=== PATIENT | female | born 1980 | race Caucasian/White ===

== ENCOUNTER 2019-05-05 10:02 | Emergency (ER) | payer SELFPAY ==
[2019-05-05 10:14] VITALS: BP 174/115
--- NOTE | 2019-05-05 10:23 | ED Physician Documentation ---
Skin Rash - HISTORIAN Historian: patient - HPI Stated Complaint: Rash Chief Complaint: Skin Rash Additional Information: Patient is a 38 year old female that c/o a rash that started 3 weeks ago after having rectal sexual intercourse with ex boyfriend. She has not tried anything over the counter. Onset: days ago (3 weeks) Timing: still present Duration: persistent since Location: waldo-rectal Quality: itchy Identified Cause?: Yes (sex) When Did Symptoms Start: 04/14/19 Where: other ([facility]) Context: Medication Exposure: none Context: Food Exposure: none Context: Other Exposure: other (sexual intercourse) - ROS CONST: none CVS/RESP: none EYES/ENT: none GI/: none MS/SKIN/LYMPH: none NEURO/PSYCH: none - PAST HX Past History: other (anxiety, depression, psychosis) Immunizations: UTD Allergies/Adverse Reactions: Allergies Allergy/AdvReac Type Severity Reaction Status Date / Time cephalexin [From Keflex] Allergy Verified 05/05/19 10:14 nalbuphine [From Nubain] Allergy Verified 05/05/19 10:14 Penicillins Allergy Verified 05/05/19 10:14 Home Medications: Ambulatory Orders Medication Instructions Recorded Quetiapine Fumarate [Seroquel] 600 mg PO HS 05/05/19 Venlafaxine HCl [Effexor] 1 tab PO DAILY 05/05/19 - SOCIAL HX Smoking History: greater than 1 pack/day Alcohol Use: none (denies) Drug Use: none (denies but behavior presents otherwise) - FAMILY HX Family History: none - VITAL SIGNS Vital Signs: Vital Signs Temp Pulse Resp BP Pulse Ox 98.8 F 77 20 174/115 99 05/05/19 10:32 05/05/19 10:32 05/05/19 10:32 05/05/19 10:32 05/05/19 10:32 - REVIEWED ASSESSMENTS Nursing Assessment Reviewed: Yes Vitals Reviewed: Yes Skin Rash Physical Exam - EXAM General Appearance: no acute distress, alert Skin: warm,dry, skin rash Location: other (rectal) Character: patchy Symptoms: tenderness Extremities: non-tender, nml ROM Respiratory: breath sounds normal CVS: heart sounds nml Neuro/Psych: oriented x3, CN's nml as tested, motor nml, sensation nml, mood/affect nml Discharge Clincal Impression: Rectal candidiasis Referrals: Primary Doctor,No [Primary Care Provider] - 2 Days Additional Instructions: No rectal sexual intercourse until healing Use over the counter Miconazole daily for 7 days Follow up with PCP Condition: Good Disposition: 01 HOME, SELF-CARE Decision to Admit: NO Decision Time: 10:38
== END 2019-05-05 10:33 | disposition home or self-care (01) ==
LOC: ED 10:02
DX: B37.89 Other sites of candidiasis (principal)
CPT/HCPCS: 99281; 99282

== ENCOUNTER 2019-05-08 17:26 | Emergency (ER) | payer SELFPAY ==
--- NOTE | 2019-05-08 17:43 | ED Physician Documentation ---
Headache - HISTORIAN Historian: patient - HPI Chief Complaint: Headache Additional Information: Patient is a 38-year-old female who presents to the ER via [facility] with c/o a headache. She has not taken her Lisinopril in one week. She states it is the worst headache she has ever had; states mom had a brain tumor. Patient has photophobia; denies any nausea or vomiting. No visual disturbances. (Patient arrived to ER in one ambulance and significant other called for an ambulance for headache as well). Patient resides at the [facility]. Onset: hours Timing: gradual, still present, persistent Exposure To: none Severity: moderate Quality: tightness, throbbing Associated Symptoms: sensitivity to light Preceding Symptoms: denies: visual disturbance Exacerbated By: light, movement - ROS NEURO/PSYCH: denies: confusion EYES/ENT: denies: sinus pain CVS/RESP: denies: shortness of breath MS/SKIN/LYMPH: denies: muscle aches - PAST HX Medical History: hypertension, other (anxiety and depression) Surgical History: appendectomy, other () Immunizations: UTD Allergies/Adverse Reactions: Allergies Allergy/AdvReac Type Severity Reaction Status Date / Time cephalexin [From Keflex] Allergy Verified 05/08/19 17:34 nalbuphine [From Nubain] Allergy Verified 05/08/19 17:34 Penicillins Allergy Verified 05/08/19 17:34 Home Medications: Ambulatory Orders Medication Instructions Recorded Quetiapine Fumarate [Seroquel] 600 mg PO HS 05/05/19 Lisinopril 20 mg PO DAILY #30 tablet 05/08/19 Lisinopril [Zestril] 40 mg PO DAILY 05/08/19 - SOCIAL HX Smoking History: greater than 1 pack/day Alcohol Use: none 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 Denny with Neurosurgery at the [facility]- patient can be treated as outpatient; requested medical records faxed to [phone] and they will see her in the office. Will have patient contract financial services at the [facility]. No emergency treatment is required at this time. ED Results Lab/Radiology - Radiology Radiology Impressions: HISTORY: 38-year-old female with severe headache, family history of brain tumor in her mother. COMPARISON: None available. TECHNIQUE: Noncontrast axial CT images of the head were performed. Sagittal and coronal reformatted images were obtained. FINDINGS: No intracranial hemorrhage, mass, midline shift, hydrocephalus, or evidence of acute large vessel infarct. 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 The mastoid air cells, middle ear spaces, and partially visualized paranasal sinuses are clear. No cranial fracture or scalp edema. IMPRESSION: 1. No acute intracranial process. 2. 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 Recommend follow-up noncontrast MRI of the brain on an outpatient basis to include sagittal images of the cranio-vertebral junction. - Orders Orders: ED Orders Category Date Time Status Place IV Lock 1T Care 05/08/19 17:[address] BRAIN W/O CONTRAST Stat Exams 05/08/19 Taken Dexamethasone Sodium Phosphate [Decadron] Med 05/08/19 18:27 Discontinued 4 mg IV NOW ONE Ketorolac Tromethamine [Toradol] Med 05/08/19 18:27 Discontinued 30 mg IV NOW ONE diphenhydrAMINE HCL [Benadryl] Med 05/08/19 18:27 Discontinued 25 mg IVP NOW ONE hydrALAZINE HCL [Apresoline] Med 05/08/19 17:36 Discontinued 10 mg IVP NOW ONE Headache Physical Exam - EXAM General Appearance: no acute distress, alert EENT: no facial swelling, eyes nml inspection, PERRL Neck: normal inspection, supple Respiratory: breath sounds normal CVS: heart sounds nml Skin: color nml Extremitites: normal range of motion - NEURO/PSYCH Higher Functions: alert, oriented x3, nml speech, mood/affect nml Cranial: nml as tested, no evidence of acute CVA Cerebellar: nml as tested, nml gait Sensorimotor: motor nml, sensation nml Discharge Clincal Impression: Chiari malformation type I, Headache, Hypertension Prescriptions: Lisinopril 20 mg PO DAILY #30 tablet Referrals: Primary Doctor,No [Primary Care Provider] - 2 Days Additional Instructions: adjustment supervisor prescription for Lisinopril and start taking Alternate Tylenol and Ibuprofen as needed for headache Call the Clinic [phone] and establish care Call the [facility] [phone] to schedule appointment with Neuro dc (you will have to call and talk to the financial department to set up payments) We will fax your record to Dr. Denny with Neurosurgery for you to follow up. ([phone]) Condition: Good Disposition: 01 HOME, SELF-CARE Decision to Admit: NO Decision Time: 18:48
[2019-05-08] MEDS: hydrALAZINE HCL 20 MG/1 ML IVP ONE (18:01)
[2019-05-08] MEDS: DEXAMETHASONE SOD PHOS 4 MG/ML VIAL IV ONE (18:40)
[2019-05-08] MEDS: KETOROLAC TROMETHAMINE 30 MG/1ML VIAL IV ONE (18:40)
[2019-05-08] MEDS: diphenhydrAMINE HCL 50 MG/ML VIAL IVP ONE (18:40)
[2019-05-08 19:08] VITALS: BP 158/80
--- NOTE | 2019-05-09 12:19 | Diagnostic Imaging Report ---
RAYMOND DOOLEY ED [facility] [address] [facility] [address] [place], [place]. [address] Report Submission Date: May 08, 2019 6:16:19 PM CDT Patient Study Name: ESTUARDO WEINER Date: May 08, 2019 5:42:53 PM CDT Modality Type: CT\SR Gender: F Description: CT BRAIN W/O CONTRAST : 84 Institution: [facility] Physician: RAYMOND DOOLEY ED HISTORY: 38-year-old female with severe headache, family history of brain tumor in her mother. COMPARISON: None available. TECHNIQUE: Noncontrast axial CT images of the head were performed. Sagittal and coronal reformatted images were obtained. FINDINGS: No intracranial hemorrhage, mass, midline shift, hydrocephalus, or evidence of acute large vessel infarct. 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 The mastoid air cells, middle ear spaces, and partially visualized paranasal sinuses are clear. No cranial fracture or scalp edema. IMPRESSION: 1. No acute intracranial process. 2. 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 Recommend follow-up noncontrast MRI of the brain on an outpatient basis to include sagittal images of the cranio-vertebral junction. Electronically signed on May 08, 2019 6:16:19 PM CDT by: Maycol TORREZ
== END 2019-05-08 19:01 | disposition home or self-care (01) ==
LOC: ED 17:26
DX: G93.5 Compression of brain (principal); I10 Essential (primary) hypertension; R51 Headache
CPT/HCPCS: 70450; 96374; 99284; J0360; J1100; J1200; J1885

== ENCOUNTER 2019-05-30 19:02 | Emergency (ER) | payer SELFPAY ==
[2019-05-30 19:43] VITALS: BP 122/82
[2019-05-30] MEDS: ORPHENADRINE CITRATE 60 MG/2 ML ML IM ONE (19:52)
[2019-05-30] MEDS: KETOROLAC TROMETHAMINE 60 MG/2 ML VIAL IM ONE (19:52)
--- NOTE | 2019-05-30 19:52 | ED Physician Documentation ---
General Adult - HISTORIAN Historian: patient - HPI Stated Complaint: neck pain Chief Complaint: General Adult Further Comments: yes (38 year old female patient presents with complaint of right shoulder and neck pain that started last night. Patient states she tried massage with no improvement. 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.) - ROS CONST: no problems EYES/ENT: none CVS/RESP: none GI/: none MS/SKIN/LYMPH: none NEURO/PSYCH: denies: headache, fainting, dizziness, tingling, numbness, difficulty with speech - PAST HX Past History: hypertension Surgeries/Procedures: hysterectomy Allergies/Adverse Reactions: Allergies Allergy/AdvReac Type Severity Reaction Status Date / Time cephalexin [From Keflex] Allergy Verified 05/30/19 19:42 nalbuphine [From Nubain] Allergy Verified 05/30/19 19:42 Penicillins Allergy Verified 05/30/19 19:42 Home Medications: Ambulatory Orders Medication Instructions Recorded Lisinopril 20 mg PO DAILY #30 tablet 05/08/19 Baclofen [Liorasal] 10 mg PO TID PRN #15 tablet 05/30/19 Ketorolac Tromethamine [Toradol] 10 mg PO TID #15 tablet 05/30/19 - SOCIAL HX Smoking History: cigarettes - FAMILY HX Family History: No - VITAL SIGNS Vital Signs: Vital Signs Temp Pulse Resp BP Pulse Ox 97.9 F 65 16 122/82 05/30/19 19:38 05/30/19 19:38 05/30/19 19:38 05/30/19 19:38 - REVIEWED ASSESSMENTS Nursing Assessment Reviewed: Yes Vitals Reviewed: Yes Progress - Progress Progress: Patient medicated in ER with toradol and norflex. ED Results Lab/Radiology - Orders Orders: ED Orders Category Date Time Status Ketorolac Tromethamine [Toradol] Med 05/30/19 19:43 Discontinued 60 mg IM NOW ONE Orphenadrine Citrate [Norflex] Med 05/30/19 19:43 Discontinued 60 mg IM NOW ONE General Adult Physical Exam - PHYSICAL EXAM GENERAL APPEARANCE: mild distress EENT: eye inspection normal, JANAK NECK: normal inspection, thyroid normal, stiff neck RESPIRATORY: no resp distress CVS: reg rate & rhythm, heart sounds normal, equal pulses, no murmur, no gallop, PMI nml, no JVD, no friction rub, 24 BACK: normal inspection, no CVA tenderness, other (right trapezius with muscle spasms; palpable knots in muscle tender to touch) SKIN: normal color, warm/dry, NR, INT, PAL, DR EXTREMITIES: non-tender, normal range of motion, no evidence of injury, no edema, J, 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 You may use Tylenol every 4hour as needed for pain. Limit your dose to less than 4 G per day. Do not take ibuprofen, aleve, naproxen or any other NSAID while you are on toradol. You may want to try massage, over the counter lidocaine patches, biofreeze, hasmukh valdivia or aspercream . Condition: Stable Disposition: 01 HOME, SELF-CARE Decision to Admit: NO Decision Time: 19:50
== END 2019-05-30 20:02 | disposition home or self-care (01) ==
LOC: ED 19:02
DX: M62.838 Other muscle spasm (principal)
CPT/HCPCS: 96372; 99283; J1885; J2360